=== PATIENT | female | born 1950 | race Caucasian/White ===

== ENCOUNTER → 2017-05-30 09:47 | Outpatient (CLI) | payer BC, SELFPAY ==
--- NOTE | 2017-05-30 09:55 | XR_ITS ---
XR knee RT 3V HISTORY: ITS.REASON: RT KNEE PAIN ORDERING PHYSICIAN: Alex Lam MD PATIENT AGE: 66 years FINDINGS: Moderate osteoarthritic changes involving the medial compartment with mild osteoarthritis of the patellofemoral joint. Osteophyte formation is present medially. No fracture or dislocation. No lytic or blastic change. There is an ill-defined area of sclerosis involving the distal femur posteriorly at 2.7 cm and may be due to a bone island. Follow-up may confirm stability and exclude possibility of an active process. IMPRESSION: 1. Osteoarthritis. 2. Nonspecific sclerosis distal femur posteriorly. Recommend follow-up to confirm stability
== END ==
PROVIDERS: PCP Family Medicine; Visit Provider Family Medicine
DX: M25.561 Pain in right knee (principal)
CPT/HCPCS: 73562

== ENCOUNTER → 2017-06-01 15:15 | Outpatient (CLI) | payer BC, SELFPAY ==
--- NOTE | 2017-06-01 15:17 | MM_ITS ---
MM Dig screening mamm BI w/CAD CAD Screening ORDERING PHYSICIAN : Alex Lam MD PATIENT AGE: 66 years GENDER: Female COMPARISON: Previous mammograms: April 24, 2016 and March 2012 INDICATION: Routine screening no hormones no new complaints noncontributory family history. TECHNIQUE: Standard CC and MLO images were obtained. R2 CAD reviewed. FINDINGS: Minimal residual fibrolinear elements towards upper-outer quadrant right left breast Overall lower density breast. Prior films are helpful and supportive stability. RIGHT BREAST:. No new areas of concern follow-up in one year. LEFT BREAST:Stable appearance. No new areas of concern Specifically in the area of mild asymmetric density towards upper-outer quadrant has remained unchanged since studies dating back to 2010. IMPRESSION: ... Stable bilateral mammogram. No new areas of concern Bilateral follow-up in one year recommended. BI-RADS Category: 1 Negative RECOMMENDED FOLLOW-UP: 1YR - 1 YEAR FOLLOW-UP (A letter has been sent to the patient regarding results of the study.)
== END ==
PROVIDERS: Family Provider Family Medicine; PCP Family Medicine; Visit Provider Family Medicine
DX: Z12.31 Encounter for screening mammogram for malignant neoplasm of breast (principal)
CPT/HCPCS: 77067

== ENCOUNTER → 2017-09-10 15:23 | Outpatient (CLI) | payer MEDICARE, OTHER, SELFPAY ==
--- NOTE | 2017-09-10 15:28 | XR_ITS ---
XR chest 2V HISTORY: ITS.REASON: ABNORMAL BREATHING ORDERING PHYSICIAN: Alex Lam MD PATIENT AGE: 67 years COMPARISON: None FINDINGS: The cardiomediastinal silhouette and pulmonary vascularity are within normal limits. The lungs are clear without infiltrates, suspicious nodules, or pleural effusions. No acute bony abnormalities. IMPRESSION: Negative chest, no acute finding
== END ==
PROVIDERS: PCP Family Medicine; Visit Provider Family Medicine
DX: R06.89 Other abnormalities of breathing (principal)
CPT/HCPCS: 71046; 93005

== ENCOUNTER → 2017-11-12 08:25 | Outpatient (CLI) | payer MEDICARE, OTHER, SELFPAY ==
[2017-11-12 09:27] LABS: Anion Gap 11.1 mEq/L (5-15); Blood Urea Nitrogen 16 mg/dL (7-18); Calcium 9.3 mg/dL (8.5-10.1); Carbon Dioxide 28 mmol/L (21.0-32.0); Chloride 109 mmol/L (98-107); Creatinine,Serum 0.93 mg/dL (0.55-1.02); Estimated Glomerular Filt Rate 61 ml/min (>60); GFR (African American) 73 ML/MIN (>60); Glucose 115 mg/dL (74-106); Potassium 4.1 mmoL/L (3.5-5.1); Sodium 144 mmol/L (136-145)
[2017-11-13 07:37] LABS: Vitamin B12 457 pg/mL (232-1245)
[2017-11-13 07:38] LABS: Folate 14.6 ng/mL (>3.0)
== END ==
PROVIDERS: PCP Family Medicine; Visit Provider Specialist
DX: G47.8 Other sleep disorders (principal); M54.2 Cervicalgia; R06.83 Snoring; R06.89 Other abnormalities of breathing; R51 Headache
CPT/HCPCS: 36415; 80048; 82607; 82746

== ENCOUNTER → 2017-11-15 08:27 | Outpatient (CLI) | payer MEDICARE, OTHER, SELFPAY ==
--- NOTE | 2017-11-15 08:30 | MR_ITS ---
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 It happened for 2 months. Has been happening for the past 3-5 years. TECHNIQUE: : Precontrast Multiplanar FLAIR, T1, T2 weighted images along with axial diffusion/ADC imaging performed on 1.5 T. Siemens, MRI. Postcontrast imaging [id number] ProHance T1-weighted images axial & coronal plane performed COMPARISON :None FINDINGS . Normal anatomy. Cranial cervical junction appears satisfactory. The ventricles & basal cisterns appear satisfactory. Sella suprasellar region unremarkable. There is mild cerebral atrophy. Age-appropriate. Diffusion images show no acute or recent infarct. No abnormal areas of enhancement postcontrast. No Mass lesion evident.. No mass effect Chronic small vessel deep white matter ischemic gliotic changes. Numerous high signal foci throughout the periventricular and subcortical deep white matter.. Majority of these are small foci measuring less than 6 mm I would note a a larger focus seen just superior to the anterior sylvian fissure on axial image 16, coronal 9 with this high signal focus measuring nearly 1 cm size. There is also a rim of high signal about the anterior horns and lateral ventricle are slightly flexed similar process. The ventricles are not dilated.. No territorial infarct. No deep white matter lesions are seen involving the brainstem or cerebellum. Corpus callosum intact. Note Prominent perivascular space is seen at the floor the right basal ganglia measuring just less than 1 cm.-No gliosis here thus favor perivascular space rather than an old infarct. The paranasal sinuses are clear with only some borderline mucosal thickening ethmoid air cells. Moderate engorgement nasal turbinates. Orbits appear satisfactory bilateral. The mastoid air cells, well-developed and clear with no significant findings no remarkable mastoid effusion. Middle ear clear bilaterally. IACs appear symmetric with no enhancing mass at either IAC. CP angles clear.. IMPRESSION: 1. Moderately pronounced Chronic Small Vessel White Matter Ischemic/Gliotic changes throughout cerebral hemispheres bilateral. 2. Otherwise unremarkable MRI brain. No territorial infarct. No mass lesion. No abnormal areas of enhancement. Posterior fossa, brainstem, craniocervical junction unremarkable. Chronic small vessel deep white matter ischemic gliotic changes
--- NOTE | 2017-11-15 09:22 | HMH.ITSHM ---
CITALOPRAM OMEGA 3 VITAMIN D
== END ==
PROVIDERS: Family Provider Family Medicine; PCP Family Medicine; Visit Provider Specialist
DX: G47.8 Other sleep disorders (principal); M54.2 Cervicalgia; R06.83 Snoring; R06.89 Other abnormalities of breathing; R51 Headache
CPT/HCPCS: 70553; A9576

== ENCOUNTER → 2017-11-26 13:03 | Outpatient (CLI) | payer MEDICARE, OTHER, SELFPAY | PROVIDERS: Visit Provider Specialist | DX: G47.8 Other sleep disorders (principal); M54.2 Cervicalgia; R06.83 Snoring; R06.89 Other abnormalities of breathing; R51 Headache; G47.33 Obstructive sleep apnea (adult) (pediatric) | CPT/HCPCS: G0399 ==

== ENCOUNTER → 2018-06-03 14:03 | Outpatient (CLI) | payer MEDICARE, OTHER, SELFPAY | PROVIDERS: Visit Provider Otolaryngology | DX: E04.1 Nontoxic single thyroid nodule (principal) | CPT/HCPCS: 36415; 84439; 84443; 84445; 86376 ==

== ENCOUNTER → 2018-06-03 14:14 | Outpatient (CLI) | payer MEDICARE, OTHER, SELFPAY ==
--- NOTE | 2018-06-03 14:16 | US_ITS ---
US thyroid HISTORY: ITS.REASON: Thyroid nodule ORDERING PHYSICIAN: Randolph Nicolas MD PATIENT AGE: 67 years Comparison: None FINDINGS: The isthmus is unremarkable at 3 mm. Right lobe is 4 x 1.6 x 1.3 cm and contains a 4 mm cyst along the lower pole. The left lobe is 401.5 x 1.7 cm and contains a 4 mm at 3 mm cyst in the mid aspect. No suspicious nodules are evident. IMPRESSION: Small bilateral thyroid cysts
[2018-06-03 15:15] LABS: Free T4 (Free Thyroxine) 0.85 ng/dl (0.76-1.46); Thyroid Stimulating Hormone 2.93 uIU/ml (0.358-3.740)
[2018-07-02 12:41] LABS: Thyroid Peroxidase Antibodies 33
[2018-07-02 12:42] LABS: Thyroid Stimulating Immunoglob <0.10
== END ==
PROVIDERS: PCP Family Medicine; Visit Provider Otolaryngology
DX: E04.1 Nontoxic single thyroid nodule (principal)
CPT/HCPCS: 36415; 76536; 84439; 84443; 84445; 86376

== ENCOUNTER → 2018-12-09 08:55 | Outpatient (CLI) | payer MEDICARE, SELFPAY ==
--- NOTE | 2018-12-09 08:59 | US_ITS ---
PROCEDURE: US THYROID CLINICAL INDICATION: Nodule Six-month follow-up thyroid nodules COMPARISON: THY US thyroid from 06/03/2018 FINDINGS: Right lobe: 4.1 x 1.5 x 1.3 cm. A 5 x 3 mm cyst is present in the mid aspect of the right lobe. A 4 mm cyst is present in the lower pole Left lobe: 3.8 x 1.6 x 1.3 cm. 3 mm cyst in the midpole, 4 mm cyst in the midpole. Isthmus: The minimal thickening of the isthmus on the right nonspecific Additional findings: IMPRESSION: Stable appearance of the thyroid gland with small bilateral cyst. These are low level of suspicion for malignancy. Dictated by: Avery Rivera MD 12/09/2018 17:00 Electronically signed by Avery Rivera MD in [place] 12/09/2018 17:00
== END ==
PROVIDERS: PCP Family Medicine; Visit Provider Otolaryngology
DX: E04.9 Nontoxic goiter, unspecified (principal)
CPT/HCPCS: 76536

== ENCOUNTER → 2020-09-30 08:00 | Outpatient (CLI) | payer MEDICARE, SELFPAY ==
--- NOTE | 2020-09-30 08:10 | MM_ITS ---
PROCEDURE: MM DIG SCREENING MAMM BI W/CAD Digital Breast Tomosynthesis Included CLINICAL INDICATION: SCREENING COMPARISON: MG DMSB DIGITAL MAMM-SCREEN BILATERAL from 03/22/2012 MG DMSB DIG MAMM-SCREEN ADA W/CAD from 04/07/2016 MG SCBI MM Dig screening mamm BI w/CAD from 06/01/2017 TECHNIQUE: Standard CC and MLO images and 3D Tomosynthesis was obtained. R2 CAD reviewed. FINDINGS: There are scattered areas of fibroglandular density Right breast: Benign-appearing calcifications. Benign-appearing nodule deep upper outer right breast. No suspicious appearing mass, malignant-appearing microcalcification, architectural distortion, or skin thickening. Left breast: Stable asymmetric densities in the upper outer left breast. Benign-appearing calcifications.. No suspicious appearing mass, malignant-appearing microcalcification, architectural distortion, or skin thickening. IMPRESSION: Benign findings. No change with no evidence of malignancy BI-RAD Category: 2 Benign Finding FOLLOW-UP: 1 YR 1 Year Follow-up (A letter has been sent to the patient regarding results of the study.) Dictated by: Avery Rivera MD 10/07/2020 10:25 Avery Rivera MD in [place] 10/07/2020 10:25
--- NOTE | 2020-09-30 08:12 | XR_ITS ---
PROCEDURE: XR DEXA AXIAL SKELETON CLINICAL HISTORY: OSTEOPOROSIS COMPARISON: No exams were available for comparison FINDINGS: The right hip BMD is 0.581 with a T-score of -2.4. The left hip BMD is 0.554 with a T-score of -2.7. The lumbar spine BMD is 0.974 with a T-score of -0.7. IMPRESSION: This patient is considered osteoporotic according to the World Health Organization criteria. Fracture risk is high. Treatment is advised. Based on these results a follow-up exam is recommended in 1 year. Dictated by: Avery Rivera MD 09/30/2020 11:15 Avery Rivera MD in [place] 09/30/2020 11:15
== END ==
PROVIDERS: PCP Family Medicine; Visit Provider Nurse Practitioner Family
DX: Z12.31 Encounter for screening mammogram for malignant neoplasm of breast (principal); M81.0 Age-related osteoporosis without current pathological fracture
CPT/HCPCS: 77063; 77067; 77080

== ENCOUNTER 2021-05-05 08:35 | Outpatient (CLI) | payer MEDICARE, OTHER, SELFPAY ==
[2021-05-05 09:20] VITALS: BP 158/89; PULSE 82; RESP 18; O2SAT 95
== END 2021-05-05 09:20 | disposition home or self-care (01) ==
LOC: INF 08:38
PROVIDERS: PCP Family Medicine; Visit Provider Family Medicine
DX: M81.0 Age-related osteoporosis without current pathological fracture (principal)
CPT/HCPCS: 96372; J0897

== ENCOUNTER → 2021-10-11 10:31 | Outpatient (CLI) | payer MEDICARE, OTHER, SELFPAY ==
--- NOTE | 2021-10-11 10:43 | XR_ITS ---
FINAL REPORT CLINICAL HISTORY: LT FOOT PAIN FINDINGS: Left foot Three views were obtained. There is no acute fracture or dislocation. Mild degenerative changes are present. There is a small plantar calcaneal spur. No soft tissue abnormality is identified. IMPRESSION: Degenerative and chronic appearing findings Reviewed, Interpreted and Dictated by Fazal Little III, MD Transcribed by Rebeca Chanel Authenticated and [facility]
== END ==
PROVIDERS: PCP Family Medicine; Visit Provider Family Medicine
DX: M79.672 Pain in left foot (principal)
CPT/HCPCS: 73630

== ENCOUNTER → 2021-10-19 07:55 | Outpatient (CLI) | payer MEDICARE, OTHER, SELFPAY ==
--- NOTE | 2021-10-19 07:57 | MM_ITS ---
PROCEDURE INFORMATION: Exam: MG Bilateral Screening 3D Mammography Exam date and time: 10/19/2021 8:07 AM Age: 71 years old Clinical indication: Screening examination TECHNIQUE: Imaging protocol: Bilateral Screening tomosynthesis and 2D mammography including computer-aided detection (CAD) when performed. COMPARISON: 1. MG MM DIG SCREENING MAMM BI W/CAD 09/30/2020 8:14 AM 2. MG SCBI MM Dig screening mamm BI w/CAD 06/01/2017 3:27 PM 3. MG DMSB DIG MAMM-SCREEN ADA W/CAD 04/07/2016 10:34 AM FINDINGS: MAMMOGRAPHY: Breast composition: There are scattered areas of fibroglandular density. Mass: No suspicious masses. Architectural distortion: No suspicious distortion. Calcifications: No suspicious calcifications. Asymmetric density: None. Skin thickening: None. Axillary adenopathy: None. IMPRESSION: No mammographic evidence of malignancy. Annual screening is recommended unless otherwise clinically indicated. ASSESSMENT: BI-RADS Category 1: Negative
== END ==
PROVIDERS: PCP Family Medicine; Visit Provider Family Medicine
DX: Z12.31 Encounter for screening mammogram for malignant neoplasm of breast (principal)
CPT/HCPCS: 77063; 77067

== ENCOUNTER → 2021-11-17 08:42 | Outpatient (CLI) | payer MEDICARE, OTHER, SELFPAY ==
--- NOTE | 2021-11-17 08:45 | XR_ITS ---
FINAL REPORT TECHNIQUE: Bone densitometry calculations of the lumbar spine and right hip were obtained. CLINICAL HISTORY: osteoporosis COMPARISON: September 30, 2020 FINDINGS: DEXA BONE DENSITY AXIAL SKELETON Using L1-4, the bone mineral density of the spine is 0.958 g/cm2, corresponding to T-score of -0.8. Previously measured 0.974 g/cm2, corresponding to T-score of -0.7. Using the right hip, the bone mineral density of the femoral neck is 0.565 g/cm2, corresponding to a T-score of -2.6. Previously measured 0.554 g/cm2, corresponding to T-score of -2.7. NOTE: T-score: Standard deviation compared with peak bone mass of young adult mean. *Following the recommendations of the International Society of Bone densitometry, classification of hip BMD is based on the lower of two T-scores; total hip or femoral neck. IMPRESSION: Osteoporosis: Lowest T-score is at or below -2.5. This patient's T-score meets the World Health Organization criteria for osteoporosis. FRAX not reported because: Some T-score for the spine total or hip total or femoral neck at or below-2.5. Treated for osteoporosis. Reviewed, Interpreted and Dictated by Celio Kirk MD Transcribed by Anay Donnelly Authenticated and [facility]
== END ==
PROVIDERS: PCP Family Medicine; Visit Provider Family Medicine
DX: M81.0 Age-related osteoporosis without current pathological fracture (principal)
CPT/HCPCS: 77080

== ENCOUNTER → 2021-11-29 14:08 | Outpatient (CLI) | payer MEDICARE, OTHER, SELFPAY ==
--- NOTE | 2021-11-29 14:12 | XR_ITS ---
FINAL REPORT CLINICAL HISTORY: pain since july COMPARISON: 10/11/2021 FINDINGS: LEFT FOOT Three views of the left foot demonstrate no acute fracture or dislocation. There are mild degenerative changes. The visualized joint spaces are normally aligned. There is a small plantar calcaneal spur. The soft tissues are unremarkable. IMPRESSION: Mild degenerative change with a small plantar calcaneal spur, stable. Reviewed, Interpreted and Dictated by Fazal Little III, MD Transcribed by Anay Donnelly Authenticated and [facility]
== END ==
PROVIDERS: PCP Family Medicine; Visit Provider Podiatrist
DX: M79.672 Pain in left foot (principal)
CPT/HCPCS: 73630

== ENCOUNTER → 2022-11-22 08:58 | Outpatient (CLI) | payer MEDICARE, OTHER, SELFPAY ==
--- NOTE | 2022-11-22 09:12 | MM_ITS ---
PROCEDURE INFORMATION: Exam: MG Bilateral Screening 3D Mammography Exam date and time: 11/22/2022 9:16 AM Age: 72 years old Clinical indication: Screening examination TECHNIQUE: Imaging protocol: Bilateral Screening tomosynthesis and 2D mammography including computer-aided detection (CAD) when performed. COMPARISON: MG MM DIG SCREENING MAMM BI W/CAD 10/19/2021 8:07 AM FINDINGS: MAMMOGRAPHY: Breast composition: There are scattered areas of fibroglandular density. Mass: 0.9 cm mass in the middle third of the left upper outer quadrant. Questionable additional 0.9 cm mass in the posterior third of the left upper inner quadrant Architectural distortion: None. Calcifications: No suspicious calcifications. Asymmetric density: None. Skin thickening: None. Axillary adenopathy: None. IMPRESSION: Patient to be recalled for spot compression views of the left breast in the CC and MLO projections, a full 90 degree lateral view, and left breast ultrasound for further evaluation of 2 left breast masses. ASSESSMENT: BI-RADS Category 0: Incomplete- Need Additional Imaging Evaluation and/or Prior Mammograms for Comparison
--- NOTE | 2022-11-22 09:12 | XR_ITS ---
FINAL REPORT CLINICAL HISTORY: SCREENING, post menopause COMPARISON: 11/17/2021 FINDINGS: Using L1-4, the bone mineral density of the spine is 0.955 g/cm2, corresponding to T-score of -0.8, within normal limits but likely falsely elevated secondary to hypertrophic changes. Previously was 0.958 grams/centimeter squared with T-score of -0.8. Using the left hip, the bone mineral density of the femoral neck is 0.533 g/cm2, corresponding to a T-score of -2.8, consistent with osteoporosis. Previously was 0.565 grams/centimeter sq with T-score of -2.6. Using the right hip, the bone mineral density of the femoral neck is 0.636 g/cm2, corresponding to a T-score of -1.9, consistent with low bone density. Previously was 0.565 grams/centimeter sq with T-score of -2.6. FRAX not reported because patient is being treated for osteoporosis. NOTE: T-score: Standard deviation compared with peak bone mass of young adult mean. *Following the recommendations of the International Society of Bone densitometry, classification of hip BMD is based on the lower of two T-scores; total hip or femoral neck. IMPRESSION: Diminished bone mineral density consistent with osteoporosis. Reviewed, Interpreted and Dictated by Fazal Little III, MD Transcribed by Janelle Garcia Authenticated and [facility]
== END ==
PROVIDERS: PCP Family Medicine; Visit Provider Family Medicine
DX: Z12.31 Encounter for screening mammogram for malignant neoplasm of breast (principal); M81.0 Age-related osteoporosis without current pathological fracture
CPT/HCPCS: 77063; 77067; 77080

== ENCOUNTER → 2022-12-19 14:29 | Outpatient (CLI) | payer MEDICARE, OTHER, SELFPAY ==
--- NOTE | 2022-12-19 14:33 | US_ITS ---
PROCEDURE INFORMATION: Exam: US Left Breast, Complete MG Left Diagnostic Breast Tomosynthesis Exam date and time: 12/19/2022 3:01 PM Age: 72 years old Clinical indication: Patient recalled on the basis of a screening mammogram for further evaluation; Left breast; masses TECHNIQUE: Imaging protocol: Complete ultrasound of all four quadrants of the left breast and the retroareolar regions, including ultrasound of the axilla when performed. Left Diagnostic tomosynthesis and 2D mammography including computer-aided detection (CAD) when performed. Unilateral or bilateral exam. COMPARISON: MG MM DIG MAMM DX UNILAT LT CAD 12/19/2022 2:30 PM FINDINGS: MAMMOGRAPHY: Digital diagnostic spot compression views of the left upper inner breast and 90 degree lateral view of the left breast demonstrate normal overlapping fibroglandular structures without persistent mass or asymmetry identified. Digital diagnostic spot compression views of the left upper outer breast and 90 degree lateral view of the left breast demonstrate a persistent 0.9 cm mass ULTRASOUND: Sonographic images of the left breast including the retroareolar region, all 4 quadrants and the axilla demonstrate a hypoechoic lobulated mass in the 2 o'clock axis 9 cm from the nipple . It measures 0.5 x 0.4 x 0.3 cm in dimension. This likely reflects focal benign fibrocystic change. In the 1 o'clock axis 8 cm from the nipple is a predominantly echogenic ovoid mass versus an island of dense fibroglandular structures measuring 1.6 x 0.7 x 1.2 cm in dimension. This may correlate with the mass in the upper outer quadrant on mammography. The finding is radiographically indeterminate. The finding may reflect focal fat necrosis. An echogenic tumor is less likely. No architectural distortion or acoustical shadowing. No skin thickening or axillary adenopathy. IMPRESSION: 1. Indeterminate left upper outer quadrant mass possibly seen as a predominantly echogenic mass on sonography. Ultrasound-guided core biopsy of the left breast, clip placement, and post biopsy left mammogram are recommended for further evaluation as well as to ensure accurate correlation between the mammographic and sonographic findings. 2. Probably benign focal fibrocystic change in the left 2 o'clock axis 9 cm from the nipple. A six-month follow-up targeted left breast ultrasound is recommended to ensure stability over time. ASSESSMENT: Assessment: BI-RADS Category 4: Suspicious
== END ==
PROVIDERS: PCP Family Medicine; Visit Provider Family Medicine
DX: R92.8 Other abnormal and inconclusive findings on diagnostic imaging of breast (principal)
CPT/HCPCS: 76641; 77061; 77065; G0279

== ENCOUNTER → 2023-01-08 07:12 | Outpatient (CLI) | payer MEDICARE, OTHER, SELFPAY ==
--- NOTE | 2023-01-08 07:20 | US_ITS ---
FINAL REPORT CLINICAL HISTORY: ABN MAMM -- DR CODY RASCON -- LT BREAST -- 1:00 FINDINGS: ULTRASOUND-GUIDED LEFT BREAST CORE BIOPSY TECHNIQUE: Limited images were obtained to localize region of interest. The left breast was prepped in a routine sterile fashion and locally anesthetized with 1% lidocaine. Standard written informed consent was obtained. The biopsy needle was positioned within the outer periphery of the lesion. A total of 3 passes were made with a 18 gauge core biopsy needle. A biopsy marker clip was deployed in satisfactory position. Postbiopsy mammogram showed postbiopsy changes with clip in satisfactory position. Procedure was well tolerated . CONCLUSION: 1. Technically successful ultrasound guided core biopsy of left breast lesion as above. 2. Biopsy marker clip deployed Histopathology results reveal stromal fibrosis without atypical hyperplasia or carcinoma. Pathology is concordant with mammographic findings. Recommend 6 month mammographic follow-up as routine benign postbiopsy surveillance. Authenticated and [facility]
--- NOTE | 2023-01-08 07:21 | MM_ITS ---
FINAL REPORT CLINICAL HISTORY: post us bx, ultrasound-guided breast biopsy. Clip placement. FINDINGS: MAMMOGRAM LEFT TECHNIQUE: Standard digital 2-D views COMPARISON: 12/19/2022, 11/22/2022 and 10/19/2021 DENSITY: There are scattered areas of fibroglandular density FINDINGS: Post biopsy marker clip is noted to be in satisfactory position. Recently biopsied nodule is obscured. Postbiopsy changes are noted. IMPRESSION: Biopsy marker clip in good position RECOMMENDATION: Histopathology results reveal stromal fibrosis without atypical hyperplasia or carcinoma. Pathology is concordant with mammographic findings. Recommend 6 month mammographic follow-up as routine benign postbiopsy surveillance. Authenticated and [facility]
== END ==
PROVIDERS: PCP Family Medicine; Visit Provider Family Medicine
DX: R92.8 Other abnormal and inconclusive findings on diagnostic imaging of breast (principal)
CPT/HCPCS: 19083; 77065

== ENCOUNTER 2023-07-27 13:36 | Outpatient (CLI) | payer MEDICARE, OTHER, SELFPAY ==
--- NOTE | 2023-07-27 13:42 | MM_ITS ---
PROCEDURE INFORMATION: Exam: MG Left Diagnostic Breast Tomosynthesis Exam date and time: 07/27/2023 1:46 PM Age: 73 years old Clinical indication: Short-term radiographic followup; Left breast; biopsy TECHNIQUE: Imaging protocol: Left Diagnostic tomosynthesis and 2D mammography including computer-aided detection (CAD) when performed. Unilateral or bilateral exam. COMPARISON: 1. MG MM CLIP PLACEMENT LT 01/08/2023 8:32 AM 2. MG MM DIG MAMM DX UNILAT LT CAD 12/19/2022 2:30 PM FINDINGS: MAMMOGRAPHY: Breast composition: There are scattered areas of fibroglandular density. Breast mammogram findings: There is no stellate mass, architectural distortion or suspicious microcalcifications to suggest malignancy. A clip is noted in a subcentimeter mass in the left upper outer quadrant without interval change. By report, the biopsy was benign. No skin thickening or axillary adenopathy. IMPRESSION: Patient to return for targeted left 2 o'clock axis ultrasound to ensure stability of a probably benign 0.5 cm mass noted on sonogram dated 12/19/2022 ASSESSMENT: BI-RADS Category 0: Incomplete- Need Additional Imaging Evaluation and/or Prior Mammograms for Comparison.
== END 2023-07-27 23:59 | disposition home or self-care (01) ==
LOC: RAD 13:36
PROVIDERS: PCP Family Medicine; Visit Provider Family Medicine
DX: R92.8 Other abnormal and inconclusive findings on diagnostic imaging of breast (principal); Z12.31 Encounter for screening mammogram for malignant neoplasm of breast
CPT/HCPCS: 77061; 77065; G0279

== ENCOUNTER 2023-08-08 09:19 | Outpatient (CLI) | payer MEDICARE, OTHER, SELFPAY ==
--- NOTE | 2023-08-08 09:26 | US_ITS ---
PROCEDURE INFORMATION: Exam: US Left Breast, Complete Exam date and time: 08/08/2023 9:56 AM Age: 73 years old Clinical indication: Short-term surveillance of the left breast mass TECHNIQUE: Imaging protocol: Complete ultrasound of all four quadrants of the left breast and the retroareolar regions, including ultrasound of the axilla when performed. COMPARISON: US BIOPSY BREAST LT 01/08/2023 8:17 AM FINDINGS: ULTRASOUND: Breast ultrasound findings: Sonographic images of the left 2 o'clock axis 9 cm from the nipple demonstrates a stable focus of hypoechoic tissue likely reflective focal fibrocystic change measuring 0.6 x 0.3 x 0.6 cm in dimension. Left 1 o'clock axis ovoid mass is stable measuring 1.6 x 0.6 x 1.1 cm. This appears to be the site of prior benign biopsy. No other solid or cystic masses in the remainder of the left breast. No axillary adenopathy. IMPRESSION: Stable left 2 o'clock axis mass compared to prior sonogram dated 12/19/2022. A six-month follow-up targeted left breast ultrasound is recommended for continued close surveillance ASSESSMENT: BI-RADS Category 3: Probably benign.
== END 2023-08-08 23:59 | disposition home or self-care (01) ==
LOC: RAD 09:21
PROVIDERS: PCP Family Medicine; Visit Provider Family Medicine
DX: R92.8 Other abnormal and inconclusive findings on diagnostic imaging of breast (principal)
CPT/HCPCS: 76641

== ENCOUNTER 2024-05-06 08:46 | Outpatient (CLI) | payer MEDICARE, OTHER, SELFPAY ==
--- NOTE | 2024-05-06 08:52 | XR_ITS ---
FINAL REPORT CLINICAL HISTORY: LT BREAST MASS/SCREENING COMPARISON: 11/22/2022 FINDINGS: Using L1-4, the bone mineral density of the spine is 0.927 g/cm2, corresponding to T-score of -1.1, consistent with osteopenia. Previously was 0.955 with a T-score of -0.8. Using the left hip, the bone mineral density of the femoral neck is 0.540 g/cm2, corresponding to a T-score of -2.8, consistent with osteoporosis. Previously was 0.533 with a T-score of -2.8. Using the right hip, the bone mineral density of the femoral neck is 0.581 g/cm2, corresponding to a T-score of -2.4, consistent with osteopenia. Previously was 0.636 with a T-score of -1.9. FRAX not reported because some T-score at or below -2.5. Patient treated for osteoporosis. NOTE: T-score: Standard deviation compared with peak bone mass of young adult mean. *Following the recommendations of the International Society of Bone densitometry, classification of hip BMD is based on the lower of two T-scores; total hip or femoral neck. IMPRESSION: Diminished bone mineral density consistent with osteopenia in the lumbar spine and right hip and osteoporosis in the left hip. Reviewed, Interpreted and Dictated by Dolores Arias MD Transcribed by Janelle Garcia Authenticated and [facility]
--- NOTE | 2024-05-06 08:53 | US_ITS ---
PROCEDURE INFORMATION: Exam: US Left Breast, Complete MG Bilateral Diagnostic Breast Tomosynthesis Exam date and time: 05/06/2024 9:25 AM Age: 73 years old Clinical indication: Follow-up probably benign mass in the left breast. TECHNIQUE: Imaging protocol: Complete ultrasound of all four quadrants of the left breast and the retroareolar regions, including ultrasound of the axilla when performed. Bilateral Diagnostic tomosynthesis and 2D mammography including computer-aided detection (CAD) when performed. Unilateral or bilateral exam. COMPARISON: US BREAST LT COMPLETE 08/08/2023 9:56 AM FINDINGS: MAMMOGRAPHY: Breast composition: There are scattered areas of fibroglandular density. Breast mammogram findings: Previously biopsied mass in the left upper outer quadrant. No new or suspicious masses seen. No suspicious or unexplained distortion, calcifications, or other mammogram abnormality. ULTRASOUND: Breast ultrasound findings: Stable benign finding in the left breast 1 o'clock axis, 6 cm from the nipple consistent with a lymph node, unchanged since ultrasound of 01/08/2023, measuring 1.3 x 0.5 x 1.3 cm. Hypoechoic mass in the left breast 2 o'clock axis, 9 cm from the nipple measures 0.5 x 0 4 x 0.5 cm, which is stable since 01/08/2023 as well. There is no new or suspicious mass. No shadowing or distortion. No axillary adenopathy. IMPRESSION: Findings in the left breast at the 1 o'clock axis, 6 cm from the nipple and the 2 o'clock axis, 9 cm from the nipple are stable since 01/08/2023. Ultrasound follow-up in 12 months is recommended for the finding at the 2 o'clock axis, 9 cm from the nipple, to ensure a full 2 years of stability. The patient will be due for her annual mammogram at that time. ASSESSMENT: BI-RADS Category 3: Probably benign.
== END 2024-05-06 23:59 | disposition home or self-care (01) ==
LOC: RAD 08:48
PROVIDERS: PCP Family Medicine; Visit Provider Family Medicine
DX: M81.0 Age-related osteoporosis without current pathological fracture (principal); R92.8 Other abnormal and inconclusive findings on diagnostic imaging of breast; N63.21 Unspecified lump in the left breast, upper outer quadrant
CPT/HCPCS: 76641; 77062; 77066; 77080; G0279

== ENCOUNTER 2024-07-03 06:59 | Day surgery (SDC) | payer MEDICARE, OTHER, SELFPAY ==
[2024-07-02 14:35] VITALS: BMI 28.5
[2024-07-03 08:22] VITALS: BP 143/80; PULSE 81; RESP 18; TEMP 36.2; O2SAT 97
[2024-07-03] MEDS: LACTATED RINGERS 1000ML 1,000 ML 50 ML IV (08:42)
--- NOTE | 2024-07-03 08:52 | P.PNANES_ITS ---
[facility] Disclaimer: The information contained in this section may have been updated after the patient was seen, as this information can be updated by other users. Medical History Family history of hypertension in mother Surgical History H/O: knee surgery History of H/O tubal ligation Hx of tonsillectomy Family History (Updated 07/03/24 @ 08:23 by Kate De RN) Other Cancer Social History (Updated 07/03/24 @ 08:25 by Kate De RN) Smoking Status: Never smoker alcohol intake: never substance use type: denies use current occupational status: retired Travel in the last 8 weeks?: None household members: spouse housing: house caffeine: No Have you lived/traveled outside [place] in past 30 days?: No Contact w/someone who lives/traveled outside [place] past 30 days?: No Exposure to someone with infectious disease in past 14 days?: No Do you have a fever (greater than 100.4 F or 38 C)?: No Have you tested positive for COVID-19?: No Exposed to someone with COVID-19 in past 14 days?: No Do you have a sore throat?: No Do you have a cough?: No Do you have any weakness?: No Are you experiencing any nausea/vomitting?: No Do you have any diarrhea?: No Are you experiencing any unusual bleeding?: No Do you have any muscle aches/pain?: No Do you have any abdominal pain?: No Are you experiencing loss of taste or smell?: No [facility] Anesthesia Checklist Patient Identification Patient Identification: Arm Band and Verbal (Name & ) Structural Data Admitted From: Home Planned Operative Procedure/s: colonoscopy Verified Documents: Surgical Consent NPO Status Verified Time NPO: 00:00 Chart Verification Results Verified: None Additional verifications Anesthesia Reactions: No Airway Assessment Mallampati Score:: Class II Dentition: Good Dentition Neurological Assessment Level of Consciousness: Awake, Alert and Appropriate Hx Seizures: No Numbness or tingling in extremities: No Anesthesia Plan Anesthesia Plan: Verified Anesthesia Type: MAC
--- NOTE | 2024-07-03 09:07 | P.HP_ITS ---
History of Present Illness *Admission Date: 07/03/24 *Reason for visit:: Personal history of colon polyps *History of present illness: Mrs. Godoy is a 74-year-old female who is here for follow-up surveillance colonoscopy. The patient did have a colonoscopy with me 5 years ago and had a couple of benign polyps removed. The examination is deemed medically necessary for surveillance colonoscopy. The patient has been seen, interviewed and examined prior to the procedure by both myself and the anesthesia provider. [facility] Disclaimer: The information contained in this section may have been updated after the patient was seen, as this information can be updated by other users. Medical History (Updated 07/03/24 @ 09:19 by Randall Browning II, MD) Family history of hypertension in mother Surgical History H/O: knee surgery History of H/O tubal ligation Hx of tonsillectomy Family History (Updated 07/03/24 @ 08:23 by Kate De RN) Other Cancer Social History (Updated 07/03/24 @ 08:25 by Kate De RN) Smoking Status: Never smoker alcohol intake: never substance use type: denies use current occupational status: retired Travel in the last 8 weeks?: None household members: spouse housing: house caffeine: No Have you lived/traveled outside [place] in past 30 days?: No Contact w/someone who lives/traveled outside [place] past 30 days?: No Exposure to someone with infectious disease in past 14 days?: No Do you have a fever (greater than 100.4 F or 38 C)?: No Have you tested positive for COVID-19?: No Exposed to someone with COVID-19 in past 14 days?: No Do you have a sore throat?: No Do you have a cough?: No Do you have any weakness?: No Are you experiencing any nausea/vomitting?: No Do you have any diarrhea?: No Are you experiencing any unusual bleeding?: No Do you have any muscle aches/pain?: No Do you have any abdominal pain?: No Are you experiencing loss of taste or smell?: No Other Medical History Have you received the Pneumonia Vaccine: No Review of Systems Review of Systems Review of systems (narrative): Negative *Cardiovascular Comments: Negative *Gastrointestinal Comments: Negative *Genitourinary Comments: Negative *Musculoskeletal Comments: Negative *Neurologic Comments: Negative Meds Home Medications and Allergies Home Medications ?Medication ?Instructions ?Recorded ?Confirmed ?Type cholecalciferol (vitamin D3) 125 5,000 unit PO DAILY d aily 10/29/17 07/03/24 History mcg (5,000 unit) capsule calcium 500 mg (as carbonate)-D3 1 each PO DAILY Suppl ement 05/05/21 07/03/24 History 2.5 mcg (100 unit) chewable tablet rosuvastatin 5 mg tablet 5 mg PO DAILY Cholesterol 07/03/24 History sodium,potassium,mag sulfates 17.5 See Rx Instructions PO .COMPLEX 06/24/24 07/03/24 Rx gram-3.13 gram-1.6 gram oral soln #354 mL (Suprep Bowel Prep Kit) coenzyme Q10 100 mg capsule (Co 100 mg PO DIRECTED 07/02/24 07/03/24 History Q-10) New Prescriptions to Start Prescriptions: Allergies Allergy/AdvReac Type Severity Reaction Status Date / Time No Known Allergies Allergy Verified 07/03/24 08:19 Exam Data for Last 24 hours Vital signs and Labs for Last 24 Hours: Temp Pulse Resp BP Pulse Ox O2 Del Method 97.1 F L 81 18 143/80 H 97 Room Air 07/03/24 08:22 07/03/24 08:22 07/03/24 08:22 07/03/24 08:22 07/03/24 08:22 07/03/24 08:22 I & O for Last 24 hours: Intake & Output 06/30/24 07/01/24 07/02/24 07/03/24 23:59 23:59 23:59 23:59 Weight 146 lb *Routine HEENT Exam Head: Present normocephalic Eye: Present EOMI and PERRL ENT: Present mucous membranes moist *Routine Neck Exam Neck: Present supple *Routine Respiratory Exam Respiratory: Present CTA bilaterally *Routine Cardiovascular Exam Cardiovascular: Present RRR *Routine Abdominal Exam Abdominal: Present soft and normoactive bowel sounds; Absent tenderness *Routine Rectal Exam Rectal:: deferred *Routine Genitalia Exam Genitalia:: deferred *Routine Extremities Exam Extremities: Absent cyanosis, clubbing or edema *Routine Skin Exam Skin: Present warm; Absent rash *Routine Neurological Exam Neurological: Present alert and oriented X3 Assessment and Plan *Assessment and plan (1) Personal history of colon polyps, unspecified: Status: Acute Category: Medical Code(s): Z86.0100 - Personal history of colon polyps, unspecified Plan A/P: 1. Personal history of colon polyps is the preprocedural diagnosis. The patient will be anesthetized/sedated using MAC sedation. The patient has been seen and examined. Cardiac and lung assessment prior to the examination is stable. Proceed with planned surveillance colonoscopy.
--- NOTE | 2024-07-03 09:20 | HMH.PROCNOTE ---
[facility] Procedure Note Date: 07/03/24 Time: 09:38 Procedure Note:: Colonoscopy Procedure Report: Colonoscopy with cold snare polypectomy Endoscopist: Randall Browning II, MD Referring physician: Jude Lam MD Date of Procedure: July 03, 2024 Equipment: Olympus 190 variable stiffness pediatric colonoscope Sedation: MAC sedation Indication: Mrs. Godoy is a 74-year-old female who is here for follow-up surveillance colonoscopy. She did have a colonoscopy 5 years ago which time a couple of benign polyps were removed. She reports no abdominal pain, weight loss, change in her bowel habits or rectal bleeding. She reports no family history of colon cancer. Procedure: Prior to the procedure, a history and physical exam was performed, and patient's medications and allergies were reviewed. The risks, benefits and alternatives of the sedation and procedure were discussed with the patient. All questions were answered and informed consent was obtained. The patient was brought to the procedure room. Patient identification and proposed procedure were verified by the physician and the nurse. The patient was placed in a left lateral decubitus position and the scope was passed under direct vision. Throughout the procedure, the patient's blood pressure, pulse, and oxygen saturations were monitored continuously. The colonoscopy was accomplished without difficulty. The patient tolerated the procedure well. Findings: On digital rectal examination there was normal rectal tone. There were no external hemorrhoids. The colonoscope was introduced through the anal canal to the rectum and advanced to the cecum. The ileocecal valve and appendiceal orifice were identified. The scope was advanced a short distance into the ileum which appeared grossly normal. The scope was then withdrawn into the colon. There were 2 polyps (ascending x 1 (4 mm) and rectum x 1 (5 mm)). Both of these were removed via cold snare polypectomy. The remaining cecum, ascending and transverse colon and mucosa were grossly normal. There were scattered diverticuli throughout the descending and sigmoid colon (LEFT colon). The rectum itself was normal. Upon retroflexion within the rectum there were grade 1-2 internal hemorrhoids. The preparation was good throughout with [place] Preparation Score of 8 out of 9. The cecal time was 12 minutes. Impression: 1. Colonic polyps x 2 2. Left-sided diverticulosis 3. Grade 1-2 internal hemorrhoids Plan: I will follow-up the polyp histology and recommend repeat surveillance colonoscopy again in 7 years if the polyps are adenomatous.
[2024-07-03 09:43] VITALS: BP 135/79; PULSE 80; RESP 16; TEMP 36.4; O2SAT 96
[2024-07-03 09:53] VITALS: BP 138/79; PULSE 75; RESP 16; O2SAT 97
[2024-07-03 10:03] VITALS: BP 149/80; PULSE 70; RESP 16; O2SAT 97
[2024-07-03 10:13] VITALS: BP 150/73; PULSE 70; RESP 18; O2SAT 98
== END 2024-07-03 10:13 | disposition home or self-care (01) ==
PROVIDERS: PCP Family Medicine; Visit Provider Internal Medicine Gastroenterology
PROC: 0DJD8ZZ Inspection of Lower Intestinal Tract, Via Natural or Artificial Opening Endoscopic (ICD-10-PCS; CPT 45378; principal; 2024-07-03 09:00)
DX: D12.7 Benign neoplasm of rectosigmoid junction (principal); D12.2 Benign neoplasm of ascending colon; K57.30 Diverticulosis of large intestine without perforation or abscess without bleeding; K64.0 First degree hemorrhoids; K64.1 Second degree hemorrhoids; Z86.0100 Personal history of colon polyps, unspecified; Z79.899 Other long term (current) drug therapy
CPT/HCPCS: 45385; 88305; J7120